=== PATIENT | male | born 1985 | race Two or more races ===

== ENCOUNTER 2023-08-23 21:33 | Emergency (ER) | payer BC, OTHER ==
[~2023-08-23] VITALS: Ht 175.3 cm; Wt 95.3 kg
[2023-08-23 22:47] LABS: BASOPHILS % (AUTO) 0.1 % (0.0-2.0); EOSINOPHILS # (AUTO) 0.2 K/uL (0.0-0.7); EOSINOPHILS % (AUTO) 2.3 % (0.0-7.0); HEMATOCRIT 46.5 % (36.7-47.1); HEMOGLOBIN 16.1 g/dL (12.5-16.3); LYMPHOCYTES # (AUTO) 0.9 K/uL (0.8-4.8); LYMPHOCYTES % (AUTO) 9.7 % (20.5-51.5); MEAN CORPUSCULAR HEMOGLOBIN 31.9 uug (23.8-33.4); MEAN CORPUSCULAR HGB CONC 35 g/dL (32.5-36.3); MEAN CORPUSCULAR VOLUME 92.1 fL (73.0-96.2); MONOCYTES # (AUTO) 0.5 K/uL (0.1-1.30); MONOCYTES % (AUTO) 4.9 % (0.0-11.0); NEUTROPHILS # (AUTO) 8.1 K/uL (1.8-8.9); PLATELET COUNT (AUTO) 235 K/uL (152-348); RED BLOOD CELL COUNT(AUTO) 5.05 MIL/uL (4.06-5.63); RED CELL DISTRIBUTION WIDTH 13.1 % (12.1-16.2); WHITE BLOOD COUNT (AUTO) 9.7 K/uL (3.6-10.2)
[2023-08-23] MEDS ORDERED: CEFTRIAXONE /D5W 50ML IVPB **ER PYXIS IV ONE (22:55)
[2023-08-23] MEDS: CEFTRIAXONE 1 G in IV DEXTROSE 5% 50 ML IV ONE (22:57)
[2023-08-24 00:37] VITALS: BP 149/88; TEMP 98.8; O2SAT 98
== END 2023-08-23 23:20 | disposition home or self-care (01) ==
LOC: ER 21:39
DX: Z13.9 Encounter for screening, unspecified (principal); Z60.2 Problems related to living alone
CPT/HCPCS: 99284; 96365; 85025; 87040 ×2; 36415; J0696; A4606; A4663